=== PATIENT | male | born 1945 | race Caucasian/White ===

== ENCOUNTER 2017-01-25 13:45 | Emergency (ER) | payer OTHER ==
[~2017-01-25 13:45] MED LIST: AMLODIPINE BESY10 MG PO; ANTI-DIARRHEA2 MG PO; ASPIRIN325 MG PO; FLOMAX0.4 MG PO; GLUCOPHAGE500 MG PO; HYDROCHLOROTHIA25 MG PO; KEPPRA500 MG PO; LIDEX 0.05% OIN15 GM TP; LOMOTIL TABLET1 EACH PO; METHIMAZOLE5 MG PO; METOPROLOL TART50 MG PO; OMEPRAZOLE20 MG PO
[2017-01-25 14:03] LABS: EOSINOPHIL (%) 5.1 % (0-5); EOSINOPHIL COUNT 0.4 K/uL (0-0.3); HEMATOCRIT 46.3 % (38.0-50.0); IMMATURE GRANULOCYTE (%) 0.6 % (0.0-0.7); IMMATURE GRANULOCYTE COUNT 0.1 K/uL; INSTRUMENT ABS NEUTROPHIL CT 4.9 K/uL; LYMPHOCYTE COUNT 1.9 K/uL (1.0-2.8); MCV 84.5 FL (86-99); MONOCYTE (%) 8.4 % (3-12); MONOCYTE COUNT 0.7 K/uL (0-0.8); NEUTROPHIL (%) 61.9 % (45-76); NEUTROPHIL COUNT 4.9 K/uL (1.8-6.4); PLATELET COUNT 182 K/uL (156-360); RBC DIS.WIDTH-CV 14.9 % (11.8-14.6); RED BLOOD COUNT 5.48 M/uL (4.00-5.50); WHITE BLOOD COUNT 7.9 K/uL (4.1-10.2)
[2017-01-25 14:11] LABS: AMYLASE 27 IU/L (1-118); CHLORIDE 101 mEq/L (99-109); SODIUM 138 mEq/L (136-147)
[2017-01-25 14:13] LABS: GLUCOSE 175 mg/dL (70-99)
[2017-01-25 14:14] LABS: ANION GAP 11 MEQ/L (2-14)
[2017-01-25 14:16] LABS: SERUM ETHYL ALCOHOL < 10 mg/dL
[2017-01-25 14:17] LABS: GFR ESTIMATE (CALCULATED) 53 mL/min/
[2017-01-25 14:18] LABS: UREA NITROGEN (BUN) 14 mg/dL (9-23)
[2017-01-25 14:20] LABS: LIPASE 26 U/L (1.0-51.0)
[2017-01-25 15:37] LABS: ADD MIUA? NO; BILIRUBIN NEGATIVE; BLOOD NEGATIVE; COLOR YELLOW ((YELLOW)); GLUCOSE (STRIP) 50; KETONES NEGATIVE; LEUKOCYTES NEGATIVE; NITRITE NEGATIVE; PROTEIN (STRIP) 30; SPECIFIC GRAVITY 1.011 (1.000-1.030); UCUL ADDED? NO; UROBILINOGEN 0.2 MG/DL (0.2-1.0)
[2017-01-25 15:47] LABS: AMPHETAMINE NEGATIVE (500 ng/mL); BARBITURATES NEGATIVE (200 ng/mL); BENZODIAZEPINES NEGATIVE (150 ng/mL); COCAINE NEGATIVE (150 ng/mL); INTERNAL CONTROLS VALID? YES; METHADONE NEGATIVE (200 ng/mL); METHAMPHETAMINE NEGATIVE (500 ng/mL); OPIATES (MORPHINE) NEGATIVE (100 ng/mL); OXYCODONE NEGATIVE (100 ng/mL); PHENCYCLIDINE NEGATIVE (25 ng/mL); PROPOXYPHENE NEGATIVE (300 ng/mL); THC CANNABINOIDS NEGATIVE (50 ng/mL); TRICYCLIC ANTIDEPRESSANTS NEGATIVE (300 ng/mL)
[2017-01-25 15:56] LABS: TROP-I INTERPRETATION NEGATIVE; TROPONIN-I < 0.01 ng/mL (0.0-0.30)
== END 2017-01-25 16:27 | disposition left against medical advice (07) ==
LOC: TRA 13:45
PROVIDERS: Emergency Medicine
DX: S22.42XA Multiple fractures of ribs, left side, initial encounter for closed fracture (principal); S40.812A Abrasion of left upper arm, initial encounter; G40.909 Epilepsy, unspecified, not intractable, without status epilepticus; E11.9 Type 2 diabetes mellitus without complications; V28.0XXA Motorcycle driver injured in noncollision transport accident in nontraffic accident, initial encounter; E78.5 Hyperlipidemia, unspecified; J44.9 Chronic obstructive pulmonary disease, unspecified; Z85.46 Personal history of malignant neoplasm of prostate; Z79.84 Long term (current) use of oral hypoglycemic drugs; F17.200 Nicotine dependence, unspecified, uncomplicated
CPT/HCPCS: 70450; 71250; 72125; 72128; 72131; 73110; 73552; 74176; 80048; 81003; 82150; 83690; 84484; 85025; 86900; 86901; 93005; 99281; 99285; G0480

== ENCOUNTER 2018-02-17 20:29 | Inpatient (IN) | payer OTHER ==
[~2018-02-17] VITALS: Ht 170.2 cm; Wt 80.2 kg
[2018-02-17 00:20] VITALS: BP 192/79
[2018-02-17 21:21] LABS: BASOPHIL (%) 0.4 % (0-1); EOSINOPHIL COUNT 0.3 K/uL (0-0.3); HEMATOCRIT 35.5 % (38.0-50.0); HEMOGLOBIN 11.3 G/DL (12.5-16.6); IMMATURE GRANULOCYTE (%) 0.7 % (0.0-0.7); LYMPHOCYTE (%) 23.2 % (15-42); LYMPHOCYTE COUNT 1.9 K/uL (1.0-2.8); MCH 27.3 PG (29.0-34.0); MCHC 31.8 G/DL (30.0-36.0); MCV 85.7 FL (86-99); MONOCYTE (%) 9.4 % (3-12); MONOCYTE COUNT 0.8 K/uL (0-0.8); NEUTROPHIL (%) 62.3 % (45-76); PLATELET COUNT 156 K/uL (156-360); RBC DIS.WIDTH-CV 15.6 % (11.8-14.6); RBC DIS.WIDTH-SD 48.6 % (39-53); RED BLOOD COUNT 4.14 M/uL (4.00-5.50); WHITE BLOOD COUNT 8.1 K/uL (4.1-10.2)
[2018-02-17 21:29] LABS: AMYLASE 23 IU/L (1-118); CHLORIDE 102 mEq/L (99-109); POTASSIUM 3.8 mEq/L (3.7-5.4); SODIUM 136 mEq/L (136-147)
[2018-02-17 21:31] LABS: GLUCOSE 124 mg/dL (70-99)
[2018-02-17 21:34] LABS: SERUM ETHYL ALCOHOL < 10 mg/dL
[2018-02-17 21:35] LABS: CREATININE 1.1 mg/dL (0.6-1.3); GFR ESTIMATE (CALCULATED) > 59 mL/min/ (58.99-99999)
[2018-02-17 21:36] LABS: UREA NITROGEN (BUN) 19 mg/dL (9-23)
[2018-02-17 21:38] LABS: LIPASE 19 U/L (1.0-51.0)
[2018-02-17 21:44] LABS: TROP-I INTERPRETATION NEGATIVE; TROPONIN-I < 0.01 ng/mL (0.0-0.30)
[2018-02-17 22:15] LABS: AMPHETAMINE NEGATIVE (500 ng/mL); BARBITURATES NEGATIVE (200 ng/mL); BENZODIAZEPINES NEGATIVE (150 ng/mL); BUPRENORPHINE NEGATIVE (10 ng/mL); COCAINE NEGATIVE (150 ng/mL); METHADONE NEGATIVE (200 ng/mL); METHAMPHETAMINE NEGATIVE (500 ng/mL); OPIATES (MORPHINE) NEGATIVE (100 ng/mL); OXYCODONE NEGATIVE (100 ng/mL); PHENCYCLIDINE NEGATIVE (25 ng/mL); PROPOXYPHENE NEGATIVE (300 ng/mL); THC CANNABINOIDS NEGATIVE (50 ng/mL); TRICYCLIC ANTIDEPRESSANTS NEGATIVE (300 ng/mL)
[2018-02-17 22:42] LABS: APPEARANCE CLEAR ((CLEAR)); BILIRUBIN NEGATIVE; BLOOD SMALL; COLOR STRAW ((YELLOW)); GLUCOSE (STRIP) NEGATIVE; KETONES NEGATIVE; LEUKOCYTES NEGATIVE; NITRITE NEGATIVE; PROTEIN (STRIP) 30; UROBILINOGEN 0.2 MG/DL (0.2-1.0)
[2018-02-17 22:57] LABS: BACTERIA NONE SEEN /HPF; EPITHELIAL CELLS NONE SEEN /HPF; MUCUS TRACE /LPF; RED BLOOD CELLS 30-40 /HPF (0-5); UCUL ADDED? NO; WHITE BLOOD CELLS 0-5 /HPF (0-5)
[2018-02-18] VITALS (17 sets, daily range): BP systolic 133–194; BP diastolic 79–152
[2018-02-18 10:01] LABS: HEMOGLOBIN A1c (GLYCOHEMOGLOB) 6.3 % (Below 5.7)
[2018-02-18] MEDS ORDERED: AMLODIPINE BESYL5 MG PO (14:58)
[2018-02-18] MEDS ORDERED: CELEXA20 MG PO (14:59)
[2018-02-18] MEDS ORDERED: LIPITOR80 MG PO (15:02)
[2018-02-18] MEDS ORDERED: DICLOFENAC SOD100 G1 TP (15:03)
[2018-02-18] MEDS ORDERED: LOPERAMIDE2 MG PO (15:04)
[2018-02-18] MEDS ORDERED: LACTOBACILLUS1 EACH PO (15:04)
[2018-02-18] MEDS ORDERED: ALLOPURINOL100 MG PO (15:05)
[2018-02-18] MEDS ORDERED: VITAMIN D31000 UNIT PO (15:06)
[2018-02-18] MEDS ORDERED: B-12500 MC1 SL (15:06)
[2018-02-19] VITALS (17 sets, daily range): BP systolic 102–169; BP diastolic 53–86
[2018-02-19 06:03] LABS: HEMATOCRIT 36.8 % (38.0-50.0); HEMOGLOBIN 11.4 G/DL (12.5-16.6); MCH 26.6 PG (29.0-34.0); MCV 85.8 FL (86-99); PLATELET COUNT 155 K/uL (156-360); RBC DIS.WIDTH-CV 15.4 % (11.8-14.6); RBC DIS.WIDTH-SD 48.2 % (39-53); RED BLOOD COUNT 4.29 M/uL (4.00-5.50)
[2018-02-19 06:34] LABS: CHLORIDE 105 MEQ/L (99-109); CREATININE 1.2 MG/DL (0.6-1.3); GFR ESTIMATE (CALCULATED) > 59 mL/min/ (58.99-99999); GLUCOSE 118 mg/dL (70-99); MAGNESIUM 1.9 mg/dl (1.3-2.7); PHOSPHORUS 3.5 mg/dL (2.5-4.9); POTASSIUM 3.9 MEQ/L (3.7-5.4); SODIUM 140 MEQ/L (136-147); UREA NITROGEN (BUN) 20 mg/dL (9-23)
[2018-02-19] MEDS ORDERED: KEPPRA500 MG PO (15:25)
[2018-02-19] MEDS ORDERED: OXAYDO5 MG PO (15:25)
== END 2018-02-19 16:45 | disposition home health service (06) | DRG 84 ==
LOC: TRA 20:29 → EDOF 22:05 → ENRESERV 22:07 → ENRESERVDT 22:23 → ENRESERV 22:23 → ENRESERVTM 22:23 → 4WEST 02-18 00:18
PROVIDERS: Emergency Medicine; Surgery
DX: S06.6X9A Traumatic subarachnoid hemorrhage with loss of consciousness of unspecified duration, initial encounter (principal); G40.909 Epilepsy, unspecified, not intractable, without status epilepticus; E11.51 Type 2 diabetes mellitus with diabetic peripheral angiopathy without gangrene; G93.89 Other specified disorders of brain; S01.81XA Laceration without foreign body of other part of head, initial encounter; S01.511A Laceration without foreign body of lip, initial encounter; R40.2413 Glasgow coma scale score 13-15, at hospital admission; S60.512A Abrasion of left hand, initial encounter; S60.511A Abrasion of right hand, initial encounter; S30.810A Abrasion of lower back and pelvis, initial encounter; S70.211A Abrasion, right hip, initial encounter; S80.211A Abrasion, right knee, initial encounter; S50.812A Abrasion of left forearm, initial encounter; S50.811A Abrasion of right forearm, initial encounter; S02.2XXA Fracture of nasal bones, initial encounter for closed fracture; V29.88XA Motorcycle rider (driver) (passenger) injured in other specified transport accidents, initial encounter; Y92.410 Unspecified street and highway as the place of occurrence of the external cause; R40.2422 Glasgow coma scale score 9-12, at arrival to emergency department; I10 Essential (primary) hypertension; E78.5 Hyperlipidemia, unspecified; I73.9 Peripheral vascular disease, unspecified; J43.9 Emphysema, unspecified; F17.200 Nicotine dependence, unspecified, uncomplicated; I25.10 Atherosclerotic heart disease of native coronary artery without angina pectoris; Z87.820 Personal history of traumatic brain injury; R32 Unspecified urinary incontinence; Z79.84 Long term (current) use of oral hypoglycemic drugs; Z85.46 Personal history of malignant neoplasm of prostate
CPT/HCPCS: 70450; 70486; 71260; 72125; 74177; 80048; 81003; 82150; 82948; 83036; 83690; 83735; 84100; 84484; 85025; 85027; 86850; 86900; 86901; 87641; 93005; 94799; C9113; G0480; J0690; J1200; J1815; J1953; J2930; J7030; J7050